=== PATIENT | female | born 1965 ===

== ENCOUNTER 2017-03-23 10:58 | Emergency (ER) | payer OTHER ==
[2017-03-23 11:07] VITALS: RESP 18; TEMP 98.1
--- NOTE | 2017-03-23 12:39 | C.PDOC ---
History Of Present Illness 51 year old female with a history of osteoporosis with complaints of pain in both arms and both legs that radiates to the back for 8 days. Patient reports last night as picking up an object, she felt a crack in her left foot. She is taking vitamins, medications, and is doing exercises for her osteoporosis. Patient denies weakness, numbness, dysuria, chest pain, or shortness of breath. Time Seen by Provider: 03/23/17 11:55 Chief Complaint (Nursing): Lower Extremity Problem/Injury History Per: Patient History/Exam Limitations: no limitations Onset/Duration Of Symptoms: Days (8 days ) Current Symptoms Are (Timing): Still Present Recent travel outside of the [place]: No Past Medical History Reviewed: Historical Data, Nursing Documentation, Vital Signs Vital Signs: Last Vital Signs Temp 98.1 F 03/23/17 11:02 Pulse 72 03/23/17 12:44 Resp 18 03/23/17 12:44 BP 124/72 03/23/17 12:44 Pulse Ox 98 03/23/17 12:44 - Medical History PMH: Osteoporosis - [facility] Procedures INJECT/INFUSE NEC (09/20/14) Family History: States: Unknown Family Hx - Social History Hx Alcohol Use: No Hx Substance Use: No - Immunization History Hx Tetanus Toxoid Vaccination: No Hx Influenza Vaccination: No Hx Pneumococcal Vaccination: No Review Of Systems Cardiovascular: Negative for: Chest Pain Respiratory: Negative for: Shortness of Breath Genitourinary: Negative for: Dysuria, Incontinence Musculoskeletal: Positive for: Arm Pain, Back Pain, Leg Pain Neurological: Negative for: Weakness, Numbness Physical Exam - Physical Exam Appears: Non-toxic, No Acute Distress Skin: Warm, Dry Head: Atraumatic, Normacephalic Eye(s): bilateral: Normal Inspection, PERRL, EOMI Neck: Normal ROM, No Midline Cervical Tenderness, No Paracervical Tenderness, Supple Cardiovascular: Rhythm Regular, No Murmur Respiratory: No Rales, No Rhonchi, No Wheezing, Other (clear to auscultation bilaterally ) Extremity: Normal ROM, No Tenderness, No Pedal Edema, No Calf Tenderness, Capillary Refill (good capillary refill, less than two seconds ), No Deformity, No Swelling Pulses: Left Dorsalis Pedis: Normal, Right Dorsalis Pedis: Normal Neurological/Psych: Oriented x3 ED Course And Treatment O2 Sat by Pulse Oximetry: 96 (RA) Progress Note: Patient was given Toradol. Disposition - Disposition Referrals: [facility] [Outside] Disposition: HOME/ ROUTINE Disposition Time: 12:37 Condition: GOOD Additional Instructions: Follow up with the medical doctor within 1-2 days. Return if worsened. Prescriptions: Acetaminophen [Tylenol] 325 mg PO Q6 PRN #30 tab PRN Reason: Pain, Mild (1-3) Naproxen [Naprosyn] 500 mg PO BID #20 tab Instructions: Arthritis (ED) Forms: [facility] (Marshallese) Print Language: ROMANIAN - Clinical Impression Clinical Impression: Joint pain - PA / CAMP ASSISTANT / Resident Statement MD/DO has reviewed & agrees with the documentation as recorded. - Scribe Statement The provider has reviewed the documentation as recorded by the Scribe Rebecca Padilla All medical record entries made by the Kasandraiblogan were at my direction and personally dictated by me. I have reviewed the chart and agree that the record accurately reflects my personal performance of the history, physical exam, medical decision making, and the department course for this patient. I have also personally directed, reviewed, and agree with the discharge instructions and disposition.
[2017-03-23 12:45] VITALS: BP 124/72; PULSE 72
[2017-03-23 16:44] VITALS: O2SAT 96
== END 2017-03-23 12:55 | disposition home or self-care (01) ==
LOC: C.ER 10:58
DX: M25.50 Pain in unspecified joint (principal)
CPT/HCPCS: 96372; 99284; J1885